=== PATIENT | female | born 1985 | race Asian ===

== ENCOUNTER 2018-08-21 16:42 | Inpatient (IN) | payer SELFPAY ==
[~2018-08-21] VITALS: Ht 162.6 cm; Wt 44.5 kg
[2018-08-21 16:42] VITALS: BP 107/76
--- NOTE | 2018-08-21 16:42 | NUR ---
ED Nurse Note: PT BROUGHT IN BY AMBULANCE FROM HOME. AOX4. PT C/O MEDIAL UPPER ABDOMEN PAIN, 1010 X YESTERDAY. PT ALSO C/O NAUSEA BUT DENIES VOMITING OR DIARRHEA. ACTIVE BOWEL SOUNDS IN ALL QUADRANTS. ABDOMEN NONDISTENDED BUT TENDER TO PALPATION. LAST BM X YESTERDAY WHICH PT STATES IS FORMED. PT ALSO C/O PAINFUL URINATION X YESTERDAY. PT DENIES VAGINAL SWELLING, BLEEDING OR DISCHARGE.
[2018-08-21] MEDS ORDERED: Lidocaine 2% Visc 15ml soln ORAL ONE (17:00)
[2018-08-21] MEDS ORDERED: Isovue-300 100ml vial INJ PRN ×2 (17:00)
[2018-08-21] MEDS ORDERED: Mylanta II UD 30ml ORAL ONE (17:00)
[2018-08-21] MEDS ORDERED: Dicyclomine HCl 10mg/5ml oral soln ORAL ONE (17:00)
[2018-08-21] MEDS ORDERED: Morphine Sulfate 2mg/ml Inj IVP ONE (17:15)
--- NOTE | 2018-08-21 17:35 | NUR ---
ED Nurse Note: PT CONSUMED READI-CAT.
[2018-08-21 18:13] LABS: HEMATOCRIT 39.8 % (37.0-47.0); HEMOGLOBIN 13.2 G/DL (12.0-16.0); MEAN CORPUSCULAR VOLUME 91 FL (80-99); PLATELET COUNT 235 K/UL (150-450); RED BLOOD COUNT 4.38 M/UL (4.20-5.40); RED CELL DISTRIBUTION WIDTH 12.2 % (11.6-14.8); WHITE BLOOD COUNT 12.2 K/UL (4.8-10.8)
[2018-08-21 18:14] LABS: BASOPHILS % (AUTO) 0.2 % (0.0-2.0); EOSINOPHILS % (AUTO) 0.2 % (0.0-3.0); LYMPHOCYTES % (AUTO) 4.3 % (20.0-45.0); MONOCYTES % (AUTO) 2.3 % (1.0-10.0)
[2018-08-21] MEDS ORDERED: Morphine Sulfate 4mg/ml Inj (IV/IM USE ONLY) IVP ONE (18:15)
[2018-08-21 18:18] LABS: APPEARANCE,URINE CLEAR; BILIRUBIN, URINE NEGATIVE (NEGATIVE); GLUCOSE, URINE (UA) NEGATIVE (NEGATIVE); KETONES,URINE 4+ (NEGATIVE); LEUKOCYTE ESTERASE ,URINE NEGATIVE (NEGATIVE); NITRITE,URINE NEGATIVE (NEGATIVE); PH,URINE 5 (4.5-8.0); PROTEIN,URINE 1+ (NEGATIVE); UROBILINOGEN,URINE NORMAL MG/DL (0.0-1.0)
[2018-08-21 18:19] LABS: COLOR,URINE YELLOW
[2018-08-21 18:24] LABS: ANION GAP 13 mmol/L (5-15); BLOOD UREA NITROGEN 13 mg/dL (7-18); CALCIUM 8.4 MG/DL (8.5-10.1); CARBON DIOXIDE 24 MMOL/L (21-32); CHLORIDE 102 MMOL/L (98-107); CREATININE 0.6 MG/DL (0.55-1.30); POTASSIUM 3.6 MMOL/L (3.5-5.1); SODIUM 139 MMOL/L (136-145)
[2018-08-21 18:28] LABS: ALANINE AMINOTRANSFERASE 17 U/L (12-78); ALBUMIN 3.8 G/DL (3.4-5.0); ALKALINE PHOSPHATASE 29 U/L (46-116); ASPARTATE AMINO TRANSFERASE 16 U/L (15-37); BILIRUBIN,TOTAL 0.5 MG/DL (0.2-1.0)
--- NOTE | 2018-08-21 19:01 | NUR ---
ED Nurse Note: PT DOWN TO CT VIA JULIO C.
--- NOTE | 2018-08-21 19:03 | NUR ---
ED Nurse Note: REPORT GIVEN TO ELROY SCHAEFFER.
--- NOTE | 2018-08-21 19:10 | NUR ---
ED Nurse Note: Received Pt and report from day shift. Knowing Pt is current doing CT scan. Await for the advance order.
--- NOTE | 2018-08-21 19:22 | Emergency Room Report ---
History of Present Illness General Chief Complaint: Abdominal Pain Source: Patient (Júnior Garcia MD) Present Illness HPI 33-year-old female presents ED for evaluation. Brought in by EMS complaining of abdominal pain. Sharp, 9 out of 10, nonradiating. Multiple episodes of vomiting. Denies diarrhea. Denies chest pain or shortness of breath. Denies fevers or chills. No other aggravating relieving factors. Denies any other associated symptoms (Júnior Garcia MD) Allergies: Coded Allergies: No Known Allergies (Unverified , 08/21/18) Patient History Past Medical History: none Past Surgical History: none Pertinent Family History: none Social History: Denies: smoking, alcohol use, drug use Now: No - Unknown Immunizations: UTD Reviewed Nursing Documentation: PMH: Agreed; PSxH: Agreed (Júnior Garcia MD) Nursing Documentation-PMH Past Medical History: No Stated History (Júnior Garcia MD) Review of Systems All Other Systems: negative except mentioned in HPI (Júnior Garcia MD) Physical Exam Vital Signs Date Time Temp Pulse Resp B/P (MAP) Pulse Ox O2 Delivery O2 Flow Rate FiO2 08/21/18 16:34 98.4 109 18 122/75 98 08/21/18 16:42 Room Air Sp02 EP Interpretation: reviewed, normal General Appearance: alert, GCS 15, non-toxic, mild distress, thin Head: normocephalic, atraumatic Eyes: bilateral eye normal inspection, bilateral eye PERRL ENT: hearing grossly normal, normal pharynx, no angioedema, normal voice Neck: full range of motion, supple/symm/no masses Respiratory: chest non-tender, lungs clear, normal breath sounds, speaking full sentences Cardiovascular #1: regular rate, rhythm, no edema Cardiovascular #2: 2+ carotid (R), 2+ carotid (L), 2+ radial (R), 2+ radial (L) , 2+ dorsalis pedis (R), 2+ dorsalis pedis (L) Gastrointestinal: normal bowel sounds, soft, non-distended, no rebound, guarding, tenderness Rectal: deferred Genitourinary: normal inspection, no CVA tenderness Musculoskeletal: back normal, gait/station normal, normal range of motion, non- tender Neurologic: alert, oriented x3, responsive, motor strength/tone normal, sensory intact, speech normal Psychiatric: judgement/insight normal, memory normal, mood/affect normal, no suicidal/homicidal ideation Reflexes: 3+ bicep (R), 3+ bicep (L), 3+ tricep (R), 3+ tricep (L), 3+ knee (R) , 3+ knee (L) Skin: normal color, no rash, warm/dry, well hydrated Lymphatic: no adenopathy (Júnior Garcia MD) Medical Decision Making Diagnostic Impression: Primary Impression: Pyosalpinx Labs Test 08/21/18 18:05 White Blood Count 12.2 K/UL (4.8-10.8) Red Blood Count 4.38 M/UL (4.20-5.40) Hemoglobin 13.2 G/DL (12.0-16.0) Hematocrit 39.8 % (37.0-47.0) Mean Corpuscular Volume 91 FL (80-99) Mean Corpuscular Hemoglobin 30.2 PG (27.0-31.0) Mean Corpuscular Hemoglobin Concent 33.2 G/DL (32.0-36.0) Red Cell Distribution Width 12.2 % (11.6-14.8) Platelet Count 235 K/UL (150-450) Mean Platelet Volume 6.7 FL (6.5-10.1) Neutrophils (%) (Auto) 93.0 % (45.0-75.0) Lymphocytes (%) (Auto) 4.3 % (20.0-45.0) Monocytes (%) (Auto) 2.3 % (1.0-10.0) Eosinophils (%) (Auto) 0.2 % (0.0-3.0) Basophils (%) (Auto) 0.2 % (0.0-2.0) Urine Color Yellow Urine Appearance Clear Urine pH 5 (4.5-8.0) Urine Specific [place] 1.025 (1.005-1.035) Urine Protein 1+ (NEGATIVE) Urine Glucose (UA) Negative (NEGATIVE) Urine Ketones 4+ (NEGATIVE) Urine Blood 1+ (NEGATIVE) Urine Nitrite Negative (NEGATIVE) Urine Bilirubin Negative (NEGATIVE) Urine Urobilinogen Normal MG/DL (0.0-1.0) Urine Leukocyte Esterase Negative (NEGATIVE) Urine RBC 0-2 /HPF (0 - 2) Urine WBC 0-2 /HPF (0 - 2) Urine Squamous Epithelial Cells Few /LPF (NONE/OCC) Urine Bacteria None /HPF (NONE) Urine HCG, Qualitative Negative (NEGATIVE) Sodium Level 139 MMOL/L (136-145) Potassium Level 3.6 MMOL/L (3.5-5.1) Chloride Level 102 MMOL/L (98-107) Carbon Dioxide Level 24 MMOL/L (21-32) Anion Gap 13 mmol/L (5-15) Blood Urea Nitrogen 13 mg/dL (7-18) Creatinine 0.6 MG/DL (0.55-1.30) Estimat Glomerular Filtration Rate > 60 mL/min (>60) Glucose Level 133 MG/DL (74-106) Calcium Level 8.4 MG/DL (8.5-10.1) Total Bilirubin 0.5 MG/DL (0.2-1.0) Aspartate Amino Transf (AST/SGOT) 16 U/L (15-37) Alanine Aminotransferase (ALT/SGPT) 17 U/L (12-78) Alkaline Phosphatase 29 U/L (46-116) Total Protein 7.5 G/DL (6.4-8.2) Albumin 3.8 G/DL (3.4-5.0) Globulin 3.7 g/dL Albumin/Globulin Ratio 1.0 (1.0-2.7) Lipase 65 U/L (73-393) (Júnior Garcia MD) ER Course Patient signout to me. She has CT scan and ultrasound concerning for pyosalpinx. Zosyn given by previous doctor. I discussed the case with Dr. Landaverde, OB-EQUINE DENTIST, who recommended Cefoxitim. She recommended 24-hour observation for IV antibiotics then switched to doxycycline. She will see the patient tomorrow. Dr. Mike contacted for admission. (Miguel Angel Stephens MD) CT/MRI/US Diagnostic Results CT/MRI/US Diagnostic Results #1: Imaging Test Ordered: CT A/P Impression ascites. peripheral enhancing cystic structure within adnexa - TOA vs pyosalpinx. CT/MRI/US Diagnostic Results #2: Imaging Test Ordered: Pelvic US Impression dilated fallopian tubes with ?pus (Júnior Garcia MD) Last Vital Signs Date Time Temp Pulse Resp B/P (MAP) Pulse Ox O2 Delivery O2 Flow Rate FiO2 08/21/18 16:42 98.6 103 18 107/76 100 Room Air Status: improved (Júnior Garcia MD) Status: improved (Miguel Angel Stephens MD) Disposition: ADMITTED INPATIENT Condition: Serious Referrals: NOT CHOSEN IPA/MD,REFERRING (PCP) Júnior Garcia MD Aug 21, 2018 19:22 Miguel Angel Stephens MD Aug 21, 2018 22:51
--- NOTE | 2018-08-21 19:25 | NUR ---
ED Nurse Note: Pt back from CT scan.
[2018-08-21 19:27] VITALS: BP 111/84
--- NOTE | 2018-08-21 20:07 | NUR ---
ED Nurse Note: US Pelvis at bedside.
[2018-08-21 21:40] VITALS: BP 118/78
[2018-08-21] MEDS ORDERED: Piperacillin/Tazobactam 3.375 GM in NS 110 ML IVPB ONE (21:45)
[2018-08-21] MEDS ORDERED: cefOXitin Sod 1 GM in D5W 55 ML IVPB ONE (22:45)
--- NOTE | 2018-08-21 23:00 | NUR ---
ED Nurse Note: Lactic acid and blood culture sample sent to Lab.
[2018-08-21 23:39] VITALS: BP 111/70
[2018-08-22] VITALS (8 sets, daily range): BP systolic 96–113; BP diastolic 60–78
--- NOTE | 2018-08-22 | NUR ---
ED Nurse Note: Knowing Dr. Mike given admit orders already. Will inform floor RN.
--- NOTE | 2018-08-22 00:30 | NUR ---
ED Nurse Note: Admit Pt to 3E Room 318-1. Pt is AO x 4times, VSS, on room air no distress. Belongings and skin check with floor RN. Report given to ELROY Ruiz.
--- NOTE | 2018-08-22 00:35 | NUR ---
NURSE NOTES: Received pt from [place] via [facility], pt is A&OX4, denies pain at this time. Pt ambulated from [facility] to bed with steady gait, no distress noted. IV L AC patent and intact. Bed in low position and locked, side rails up x 2, call light within reach. Will admit pt to floor.
--- NOTE | 2018-08-22 01:00 | NUR ---
NURSE NOTES: Pt c/o pain on IV site L AC. New IV inserted on L wrist #22 patent and intact. Pt tolerated procedure well.
[2018-08-22] MEDS ORDERED: ESTRADIOL1 M1 PO (01:48)
--- NOTE | 2018-08-22 07:28 | NUR ---
HAND-OFF: Report given to ELROY Fairbanks. Pt in stable condition.
--- NOTE | 2018-08-22 07:30 | NUR ---
NURSE NOTES:rounds done,patient awake a/ox4,room air,pain 2/10,tolerable.refused for scd at this time.iv site patent.plan of care discussed and with understanding.
[2018-08-22 07:42] LABS: HEMATOCRIT 33.5 % (37.0-47.0); HEMOGLOBIN 11.7 G/DL (12.0-16.0); MEAN CORPUSCULAR VOLUME 88 FL (80-99); PLATELET COUNT 214 K/UL (150-450); RED BLOOD COUNT 3.79 M/UL (4.20-5.40); WHITE BLOOD COUNT 10.5 K/UL (4.8-10.8)
--- NOTE | 2018-08-22 10:02 | Diagnostic Imaging Report ---
Clinical Indication: Medial upper abdominal pain for one day, 10 out of 10, nausea Technique: Patient given oral contrast. IV administration nonionic contrast. Venous phase spiral acquisition obtained through the abdomen and pelvis. Multiplanar reconstructions were generated. Total dose length product 396.51 mGycm. CTDIvol(s) 8.56 mGy. Dose reduction achieved using automated exposure control Comparison: Reference made to subsequent pelvic ultrasound Findings: The right ovary is enlarged, measuring 5.4 cm long axis dimension. It demonstrates contrast complex central echoes. Equivocally communicating with this is a left adnexal tubular structure. A moderate amount of free fluid is seen within the pelvis and along the bilateral paracolic gutters. There is also some free fluid over the dome of the liver and over the spleen. The appendix is normal. There is no evidence of colonic diverticulosis or diverticulitis. No small bowel distention. No free intraperitoneal gas is evident. Distal esophagus, stomach, duodenum are unremarkable. Ingested contrast has only traversed a small portion of the small bowel. The liver demonstrates a subcentimeter low-attenuation lesion in segment 7. The gallbladder, bile ducts, pancreas, spleen, adrenals, kidneys are unremarkable. No retroperitoneal or mesenteric mass or adenopathy. The included lung bases demonstrate posterior atelectatic changes. There is trace pleural fluid on the right Impression: Enlarged right ovary with complex central contents, equivocally communicating left adnexal region tubular structure. Findings are concerning for tubo-ovarian abscess with pyosalpinx Moderate ascites, suspect related to the above Bilateral basilar pulmonary atelectatic changes and trace right pleural effusion Subcentimeter low-attenuation lesion in the right hepatic lobe, too small to characterize. Most likely benign simple cyst or bile hamartoma. No further follow-up necessary This agrees with the preliminary interpretation provided overnight by [facility]erad[facility] service. The CT scanner at [facility] is accredited by the [employer] and the scans are performed using protocols designed to limit radiation exposure to as low as reasonably achievable to attain images of sufficient resolution adequate for diagnostic evaluation.
--- NOTE | 2018-08-22 10:06 | Diagnostic Imaging Report ---
Indication: Pelvic pain, abnormal CT scan Technique: Transabdominal and transvaginal images Comparison: Reference made to CT scan performed one hour earlier Findings: Uterus measures 7.2 cm length by 4.2 cm AP. Endometrium measures 4 mm thick. No myometrial abnormality. The right ovary is enlarged and hyperemic, measures 5.4 cm in length. Complex debris-filled tubular structure seen in the left adnexa. Separate left ovary is only equivocally demonstrated, if real measuring 5 cm in length. Free fluid is seen in the pelvis. A separate left ovary is not demonstrated. Impression: Bilateral abnormal ovaries/adnexa, with evidence of a debris-filled tubular structure concerning for pyosalpinx, confirming findings described on recent CT scan. Free pelvic fluid, also described on recent CT, likely related to the above This agrees with the preliminary interpretation provided overnight by [facility] service.
--- NOTE | 2018-08-22 11:40 | Consultation ---
Consult Note Consult Note GYNECOLOGY CONSULT NOTE CC: Pelvic pain, R ovarian mass HPI: Patient is a [place] G0 who presented to the ED with new onset lower abdominal pain. She endorsed dysuria prior to the onset of worsening pain, pain with ambulation, and nausea but no vomiting. Her pain initially began on Wednesday but worsened acutely last night, prompting her to call 911. She denies any rigorous activity prior to the onset of pain. LMP 08/19/18. She has a history of dysmenorrhea. She was seen at a clinic in the community last month for her painful periods, diagnosed with a right ovarian cyst, and started on OCPs for a 3 month period. Her MP started on Wednesday, which based on her pill pack is early. Her imaging findings are concerning for TOA, however given her lab findings and clinical picture, a ruptured cyst or ovarian torsion are also in the differential. 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 FamHx: Father with lung cancer 2/2 smoking, Aunt with cervical cancer, grandfather with colon cancer VITALS: Tlast 98.9, HR 90, RR 18, BP 99/70, O2 98% RA EXAM: Gen: NAD HEENT: MMM, OP clear CV: RRR Pulm: No increased work of breathing Abd: Soft, mild/moderate TTP with mild rebound and +voluntary guarding which resolved with redirection Pelvic: Internal exam deferred, however per ED physician no abnormal discharge Skin: Warm, dry Ext: No calf TTP LABS: Test 08/21/18 18:05 08/21/18 22:00 08/22/18 06:45 White Blood Count 12.2 K/UL (4.8-10.8) 10.5 K/UL (4.8-10.8) Red Blood Count 4.38 M/UL (4.20-5.40) 3.79 M/UL (4.20-5.40) Hemoglobin 13.2 G/DL (12.0-16.0) 11.7 G/DL (12.0-16.0) Hematocrit 39.8 % (37.0-47.0) 33.5 % (37.0-47.0) Mean Corpuscular Volume 91 FL (80-99) 88 FL (80-99) Mean Corpuscular Hemoglobin 30.2 PG (27.0-31.0) 30.7 PG (27.0-31.0) Mean Corpuscular Hemoglobin Concent 33.2 G/DL (32.0-36.0) 34.8 G/DL (32.0-36.0) Red Cell Distribution Width 12.2 % (11.6-14.8) 12.0 % (11.6-14.8) Platelet Count 235 K/UL (150-450) 214 K/UL (150-450) Mean Platelet Volume 6.7 FL (6.5-10.1) 7.4 FL (6.5-10.1) Neutrophils (%) (Auto) 93.0 % (45.0-75.0) % (45.0-75.0) Lymphocytes (%) (Auto) 4.3 % (20.0-45.0) % (20.0-45.0) Monocytes (%) (Auto) 2.3 % (1.0-10.0) % (1.0-10.0) Eosinophils (%) (Auto) 0.2 % (0.0-3.0) % (0.0-3.0) Basophils (%) (Auto) 0.2 % (0.0-2.0) % (0.0-2.0) Urine Color Yellow Urine Appearance Clear Urine pH 5 (4.5-8.0) Urine Specific [place] 1.025 (1.005-1.035) Urine Protein 1+ (NEGATIVE) Urine Glucose (UA) Negative (NEGATIVE) Urine Ketones 4+ (NEGATIVE) Urine Blood 1+ (NEGATIVE) Urine Nitrite Negative (NEGATIVE) Urine Bilirubin Negative (NEGATIVE) Urine Urobilinogen Normal MG/DL (0.0-1.0) Urine Leukocyte Esterase Negative (NEGATIVE) Urine RBC 0-2 /HPF (0 - 2) Urine WBC 0-2 /HPF (0 - 2) Urine Squamous Epithelial Cells Few /LPF (NONE/OCC) Urine Bacteria None /HPF (NONE) Urine HCG, Qualitative Negative (NEGATIVE) Sodium Level 139 MMOL/L (136-145) Potassium Level 3.6 MMOL/L (3.5-5.1) Chloride Level 102 MMOL/L (98-107) Carbon Dioxide Level 24 MMOL/L (21-32) Anion Gap 13 mmol/L (5-15) Blood Urea Nitrogen 13 mg/dL (7-18) Creatinine 0.6 MG/DL (0.55-1.30) Estimat Glomerular Filtration Rate > 60 mL/min (>60) Glucose Level 133 MG/DL (74-106) Calcium Level 8.4 MG/DL (8.5-10.1) Total Bilirubin 0.5 MG/DL (0.2-1.0) Aspartate Amino Transf (AST/SGOT) 16 U/L (15-37) Alanine Aminotransferase (ALT/SGPT) 17 U/L (12-78) Alkaline Phosphatase 29 U/L (46-116) Total Protein 7.5 G/DL (6.4-8.2) Albumin 3.8 G/DL (3.4-5.0) Globulin 3.7 g/dL Albumin/Globulin Ratio 1.0 (1.0-2.7) Lipase 65 U/L (73-393) Lactic Acid Level 1.50 mmol/L (0.4-2.0) Differential Total Cells Counted 100 Neutrophils % (Manual) 92 % (45-75) Lymphocytes % (Manual) 4 % (20-45) Monocytes % (Manual) 4 % (1-10) Eosinophils % (Manual) 0 % (0-3) Basophils % (Manual) 0 % (0-2) Band Neutrophils 0 % (0-8) Platelet Estimate Adequate Platelet Morphology Normal Red Blood Cell Morphology Normal IMAGING: Pelvic US: Findings: Uterus measures 7.2 cm length by 4.2 cm AP. Endometrium measures 4 mm thick. No myometrial abnormality. The right ovary is enlarged and hyperemic, measures 5.4 cm in length. Complex debris-filled tubular structure seen in the left adnexa. Separate left ovary is only equivocally demonstrated, if real measuring 5 cm in length. Free fluid is seen in the pelvis. A separate left ovary is not demonstrated. Impression: Bilateral abnormal ovaries/adnexa, with evidence of a debris-filled tubular structure concerning for pyosalpinx, confirming findings described on recent CT scan. Free pelvic fluid, also described on recent CT, likely related to the above This agrees with the preliminary interpretation provided overnight by [facility] service. CT A/P w/CONTRAST: Findings: The right ovary is enlarged, measuring 5.4 cm long axis dimension. It demonstrates contrast complex central echoes. Equivocally communicating with this is a left adnexal tubular structure. A moderate amount of free fluid is seen within the pelvis and along the bilateral paracolic gutters. There is also some free fluid over the dome of the liver and over the spleen. The appendix is normal. There is no evidence of colonic diverticulosis or diverticulitis. No small bowel distention. No free intraperitoneal gas is evident. Distal esophagus, stomach, duodenum are unremarkable. Ingested contrast has only traversed a small portion of the small bowel. The liver demonstrates a subcentimeter low-attenuation lesion in segment 7. The gallbladder, bile ducts, pancreas, spleen, adrenals, kidneys are unremarkable. No retroperitoneal or mesenteric mass or adenopathy. The included lung bases demonstrate posterior atelectatic changes. There is trace pleural fluid on the right Impression: Enlarged right ovary with complex central contents, equivocally communicating left adnexal region tubular structure. Findings are concerning for tubo-ovarian abscess with pyosalpinx. Moderate ascites, suspect related to the above Assessment/Plan 33yo admitted with pelvic pain, noted to have R ov cyst and possible pyosalpinx on left, imaging concerning for TOA. DDx includes TOA/PID, ruptured ovarian cyst, or ovarian torsion - Patient is s/p IV antibiotics with WBC count decreasing, and patient has remained afebrile - Given patient's symptoms are improving and she has only required Tylenol since transfer, I am clearing the patient for discharge from a [employer] standpoint - I instructed the patient to follow up with her [employer] clinic in the next week for follow up - Since we cannot rule out PID, recommend empiric therapy at time of discharge ( Doxycycline 100mg PO BID x 14d) - Recommend d/c with medication for pain - OK to advance diet given no indication for urgent/emergent surgical intervention Thank you for this interesting consult Signed: MD Breana Olivarez Carla M.D. Aug 22, 2018 11:40
--- NOTE | 2018-08-22 12:20 | NUR ---
NURSE NOTES:SEEN BY DR. KINGSTON, UPDATED RE:C/O BURNING SENSATION WHEN SHE URINATED YESTERDAY.C/O ABDOMINAL PAIN AT TIMES BUT REFUSED PAIN MED WHEN OFFERED.ENCOURAGED TO AMBULATE.. STAND POINT SHES CLEARED FOR D/C TODAY.STARTED ON REGULAR DIET.
[2018-08-22] MEDS ORDERED: cefOXitin 2gm Inj IM SCH (13:00)
--- NOTE | 2018-08-22 13:26 | NUR ---
RD ASSESSMENT & RECOMMENDATIONS SEE CARE ACTIVITY FOR COMPLETE ASSESSMENT DAILY ESTIMATED NEEDS: Needs based on Borderline underweight 42.7kg 28-33 kcals/kg 6508-2191 total kcals 1-1.2 g protein/kg 43-51 g total protein 25-30 mL/kg 5431-3316 total fluid mLs NUTRITION DIAGNOSIS: Altered nutrition related lab values r/t clinical status / PUD as evidenced by febrile (tmax 100), elev BG (133). CURRENT DIET: now Regular PO DIET RECOMMENDATIONS: Regular as tolerated ADDITIONAL RECOMMENDATIONS: 1) Obtain a standing weight as able 2) Monitor BG (currently 133) 3) Add ENSURE 1 bottle daily 4) Monitor PO intake, need for snacks
[2018-08-22] MEDS ORDERED: cefOXitin Sod 2 GM in D5W 55 ML IVPB SCH (16:00)
--- NOTE | 2018-08-22 16:30 | History and Physical Report ---
DATE OF ADMISSION: 08/21/2018 HISTORY OF PRESENT ILLNESS: The patient admitted for hydrosalpinx, leukocytosis. According to the ER doctor, Dr. Yennifer Toussaint will see the patient for gynecological consultation while inpatient. The patient complains of diffuse abdominal pain especially in the lower quadrants as well as dysuria. 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 The patient does have some chills as well. Denies nausea, vomiting, or diarrhea. Denies shortness of breath. Denies cough. PAST MEDICAL HISTORY: None. PAST SURGICAL HISTORY: None. MEDICATIONS: Only on control pills. ALLERGIES: No known allergies. FAMILY HISTORY: Noncontributory. SOCIAL HISTORY: Denies history of smoking, alcohol, or illicit drugs. REVIEW OF SYSTEMS: HEENT: Denies headaches. RESPIRATORY: Denies shortness of breath. Denies cough. CARDIOVASCULAR: Denies chest pain. Denies orthopnea. GASTROINTESTINAL: Reports abdominal pain and dysuria for about a day. It has been going on for a couple of days, but is made worse in the past 1 day. The patient called 911, however, the patient is not in acute distress so I doubt relying comfortably. CENTRAL NERVOUS SYSTEM: Denies change in vision or speech pattern. EXTREMITIES: Denies pain in the lower extremity. PHYSICAL EXAMINATION: VITAL SIGNS: Temperature is 98 degrees, pulse is 103, blood pressure 113/77. HEENT: PERRLA. NECK: Supple. No lymphadenopathy. CHEST: Clear to auscultation. CARDIOVASCULAR: Regular rate and rhythm. No murmurs or extra sounds. GASTROINTESTINAL: Mild epigastric tenderness. Mild suprapubic tenderness. No rebound. Abdomen is soft. The patient is not in acute distress. EXTREMITIES: No edema. Reflexes equal on both sides. Moves all four extremities. LABORATORY DATA: WBC of 12.2, hemoglobin 13.2, platelets 235. Sodium 139, potassium 3.6, chloride 102, BUN of 13, creatinine 0.6. ASSESSMENT/PLAN: Rule out hydrosalpinx, rule out urinary tract infection. Dr. Yennifer Landaverde is going to see the patient ER doctor and Dr. Cosme Garces has also been consulted. Antibiotics per Dr. Cosme Garces. Ali Nell Mike DR: Louise JOB#: [id number] CC:
[2018-08-22] MEDS: Unasyn 3gm/NS 110ml IVPB SCH ×4 (17:09→23:34)
--- NOTE | 2018-08-22 19:20 | NUR ---
HAND-OFF: Report given to KJ FORD.
--- NOTE | 2018-08-22 19:57 | NUR ---
NURSE NOTES: Patient received in bed, aaox4. c/o burning sensation with urine. Made aware of urine collection, hat and specimen cup provided for patient. Encouraged PO hydration. Verbalized understanding . IVF infusing. Will continue to monitor.
--- NOTE | 2018-08-22 23:36 | NUR ---
NURSE NOTES: Patient c/o abdominal pain. Offered tylenol, encouraged patient to take pain medication before pain becomes severe. Tylenol administered for mild pain and low grade fever 100.0 oral temp. Will monitor.
--- NOTE | 2018-08-23 02:30 | Consultation ---
DATE OF CONSULTATION: 08/22/2018 INFECTIOUS DISEASE CONSULT: CONSULTING PHYSICIAN: Cosme Garces M.D. PRIMARY ATTENDING: Kamlesh Mike M.D. REASON FOR CONSULT: Pelvic inflammatory disease, pyosalpinx, and likely tubo-ovarian abscess. HISTORY OF PRESENT ILLNESS: The patient is a 33-year-old female admitted late last night complaining of lower abdominal pain for 1 day, 10/10 with nausea. Pain is increased with ambulation and movement. No significant fever. Last menstrual period is on 08/19/2018. PAST MEDICAL HISTORY: Nonsignificant. ALLERGIES: No known drug allergies. MEDICATIONS: Getting sodium chloride, Tylenol, got a dose of Zosyn, cefoxitin, Zofran,one dose of dicyclomine, Mylanta. SOCIAL HISTORY: Originally is from [facility]. Denied alcohol, drug abuse, or smoking. 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 REVIEW OF SYSTEMS: As history of present illness. PHYSICAL EXAMINATION: VITAL SIGNS: Maximum temperature 100, current temperature 98.6, pulse 96, and blood pressure 98/60. GENERAL APPEARANCE: Thin and underweight. HEAD AND NECK: Slightly dry mouth. HEART: Normal rate. LUNGS: Clear. ABDOMEN: Soft. Tender in lower quadrant. EXTREMITIES: Has no edema. LABORATORY AND DIAGNOSTIC DATA: WBC today is 10.5 coming down from 12.2 at the time of admission, hemoglobin 11.7, hematocrit 33.5, and platelets 214. Sodium 139, potassium 3.6, chloride 102, bicarbonate 24, BUN 13, creatinine 0.6, and glucose 133. UA was negative for WBC or RBC. The patient had a CT scan of the abdomen and pelvis that showed large right ovary concerning of tubo-ovarian abscess with pyosalpinx, moderate ascites bilateral pulmonary atelectasis. Pelvic ultrasound, bilateral abnormal ovaries and adnexa, again was concerned about pyosalpinx. IMPRESSION: Pelvic inflammatory disease with pyosalpinx and likely tubo-ovarian abscess on the right side. RECOMMENDATION: Continue cefoxitin. We will start on doxycycline. We will send urine for gonorrhea and chlamydia. We will check HIV status. At the end of my exam, I thank Dr. Mike, for involving me in the care of this patient. Cosme Nell Garces DR: LANI JOB#: [id number] CC: MCKAYLA
[2018-08-23 04:00] VITALS: BP 92/58
[2018-08-23] MEDS: Unasyn 3gm/NS 110ml IVPB SCH ×8 (05:13→23:51)
--- NOTE | 2018-08-23 07:44 | NUR ---
HAND-OFF: Report given to Ally Kim RN.
[2018-08-23 07:59] LABS: BASOPHILS % (AUTO) 0.6 % (0.0-2.0); EOSINOPHILS % (AUTO) 2.6 % (0.0-3.0); HEMATOCRIT 33.3 % (37.0-47.0); HEMOGLOBIN 11.1 G/DL (12.0-16.0); LYMPHOCYTES % (AUTO) 13.4 % (20.0-45.0); MEAN CORPUSCULAR VOLUME 91 FL (80-99); MONOCYTES % (AUTO) 7.8 % (1.0-10.0); NEUTROPHILS % (AUTO) 75.6 % (45.0-75.0); PLATELET COUNT 194 K/UL (150-450); RED BLOOD COUNT 3.68 M/UL (4.20-5.40); RED CELL DISTRIBUTION WIDTH 11.9 % (11.6-14.8); WHITE BLOOD COUNT 6.5 K/UL (4.8-10.8)
[2018-08-23 08:00] VITALS: BP 101/66
--- NOTE | 2018-08-23 08:05 | NUR ---
NURSE NOTES: Received report from ELROY Ibarra. Rounding done with outgoing nurse. Patient a/o x4 and having breakfast. Denies any pain at this time. No acute discomfort noted. Bed in lowest position and call light within reach. Will continue to monitor.
--- NOTE | 2018-08-23 11:32 | Infectious Diseases Prog Note ---
Assessment/Plan Assessment/Plan A: Pelvic inflammatory disease with pyosalpinx and likely tubo-ovarian abscess on the right side. P; Continue Unasyn & doxycycline HIV test Subjective ROS Limited/Unobtainable: No Constitutional: Reports: fever, other - low grade last night Respiratory: Reports: no symptoms Cardiovascular: Reports: no symptoms Gastrointestinal/Abdominal: Reports: other - decreased abdominal pain Genitourinary: Reports: no symptoms Neurologic: Reports: no symptoms Allergies: Coded Allergies: No Known Allergies (Unverified , 08/21/18) Objective Vital Signs Last 24 Hour Vital Signs Date Time Temp Pulse Resp B/P (MAP) Pulse Ox O2 Delivery O2 Flow Rate FiO2 08/23/18 09:00 Room Air 08/23/18 08:00 98.1 100 18 101/66 (78) 100 08/23/18 04:00 98.3 82 18 92/58 (69) 100 08/22/18 23:59 100.0 111 18 105/64 (78) 97 08/22/18 21:00 Room Air 08/22/18 20:00 98.1 105 18 101/78 (86) 100 08/22/18 16:00 99.5 104 18 101/63 (76) 98 08/22/18 12:12 98.6 96 18 98/60 (73) 99 Height (Feet): 5 Height (Inches): 4.00 Weight (Pounds): 105 General Appearance: no acute distress HEENT: mucous membranes moist Respiratory/Chest: lungs clear Cardiovascular: normal rate Abdomen: tender, other - in right lower abdomen Extremities: no edema Neurologic/Psychiatric: alert, oriented x 3, responsive Microbiology Date/Time Source Procedure Growth Status 08/21/18 23:12 Blood Blood Culture - Preliminary NO GROWTH AFTER 24 HOURS Resulted 08/21/18 22:55 Blood Blood Culture - Preliminary NO GROWTH AFTER 24 HOURS Resulted Laboratory Tests Test 08/22/18 21:00 08/23/18 07:00 Chlamydia trachomatis RNA Pending White Blood Count 6.5 K/UL (4.8-10.8) Red Blood Count 3.68 M/UL (4.20-5.40) L Hemoglobin 11.1 G/DL (12.0-16.0) L Hematocrit 33.3 % (37.0-47.0) L Mean Corpuscular Volume 91 FL (80-99) Mean Corpuscular Hemoglobin 30.3 PG (27.0-31.0) Mean Corpuscular Hemoglobin Concent 33.4 G/DL (32.0-36.0) Red Cell Distribution Width 11.9 % (11.6-14.8) Platelet Count 194 K/UL (150-450) Mean Platelet Volume 6.7 FL (6.5-10.1) Neutrophils (%) (Auto) 75.6 % (45.0-75.0) H Lymphocytes (%) (Auto) 13.4 % (20.0-45.0) L Monocytes (%) (Auto) 7.8 % (1.0-10.0) Eosinophils (%) (Auto) 2.6 % (0.0-3.0) Basophils (%) (Auto) 0.6 % (0.0-2.0) Current Medications Medications (Trade) Dose Ordered Sig/Imelda Route PRN Reason Start Time Stop Time Status Last Admin Dose Admin Acetaminophen (Tylenol) 650 mg Q4HR PRN ORAL For Pain 08/22/18 00:00 09/21/18 00:00 08/22/18 23:34 Ampicillin Sodium/ Sulbactam Sodium 3 gm/Sodium Chloride 110 ml @ 220 mls/hr Q6HR IVPB 08/22/18 17:00 08/29/18 16:59 08/23/18 05:13 Doxycycline Monohydrate (Vibramycin) 100 mg EVERY 12 HOURS ORAL 08/22/18 21:00 08/29/18 20:59 08/23/18 09:32 Sodium Chloride 1,000 ml @ 75 mls/hr [id number] IV 08/22/18 00:00 09/21/18 00:00 08/23/18 03:14 Cosme Garces MD Aug 23, 2018 11:32
[2018-08-23 12:00] VITALS: BP 111/68
[2018-08-23 16:00] VITALS: BP 94/58
[2018-08-23] MEDS ORDERED: 1/2 NS 1000ml IV ONE ×2 (17:46→17:48)
--- NOTE | 2018-08-23 19:30 | NUR ---
HAND-OFF: Report given to Alfonso Lynn.
[2018-08-23 20:00] VITALS: BP 118/68
--- NOTE | 2018-08-23 22:08 | General Progress Note ---
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 per id afebrile Subjective Gastrointestinal/Abdominal: Reports: abdominal pain Allergies: Coded Allergies: No Known Allergies (Unverified , 08/21/18) Objective Last 24 Hour Vital Signs Date Time Temp Pulse Resp B/P (MAP) Pulse Ox O2 Delivery O2 Flow Rate FiO2 08/23/18 16:00 98.3 94 18 94/58 (70) 100 08/23/18 12:00 98.1 102 18 111/68 (82) 98 08/23/18 09:00 Room Air 08/23/18 08:00 98.1 100 18 101/66 (78) 100 08/23/18 04:00 98.3 82 18 92/58 (69) 100 08/22/18 23:59 100.0 111 18 105/64 (78) 97 Intake and Output 08/22/18 08/23/18 19:00 07:00 Intake Total 1785 ml 1010 ml Balance 1785 ml 1010 ml Intake Oral 1000 ml IV Total 785 ml 1010 ml # Voids 4 2 Laboratory Tests 08/23/18 07:00: White Blood Count 6.5, Red Blood Count 3.68L, Hemoglobin 11.1L, Hematocrit 33.3L , Mean Corpuscular Volume 91, Mean Corpuscular Hemoglobin 30.3, Mean Corpuscular Hemoglobin Concent 33.4, Red Cell Distribution Width 11.9, Platelet Count 194, Mean Platelet Volume 6.7, Neutrophils (%) (Auto) 75.6H, Lymphocytes ( %) (Auto) 13.4L, Monocytes (%) (Auto) 7.8, Eosinophils (%) (Auto) 2.6, Basophils (%) (Auto) 0.6 08/23/18 07:20: HIV (1&2) Antibody Rapid Negative Height (Feet): 5 Height (Inches): 4.00 Weight (Pounds): 105 Cardiovascular: normal peripheral pulses Respiratory/Chest: lungs clear Abdomen: soft Kamlesh Mike MD Aug 23, 2018 22:08
[2018-08-24] VITALS: BP 106/79
[2018-08-24 04:00] VITALS: BP 98/62
[2018-08-24] MEDS: Unasyn 3gm/NS 110ml IVPB SCH ×2 (05:13)
--- NOTE | 2018-08-24 07:30 | NUR ---
HAND OFF TO NIRAJ ABBASI
--- NOTE | 2018-08-24 07:30 | NUR ---
NURSE NOTES: Patient is in bed awake and able to verbalize needs. Patient is stable with no s/s acute distress. Patient denies pain at this time. Patient is in good spirits. Patient in bed in locked position and call light within reach. Will continue to monitor.
[2018-08-24 08:00] VITALS: BP 108/74
--- NOTE | 2018-08-24 09:05 | NUR ---
NURSE NOTES: 1. Ok to discharge if cleared by Gynecology, 2. Resume Home medications, 3. D/C hospital medications, 4. Call Cosme Mo if patient on Antibiotic, 5. Instruct to follow up with primary doctor and Gynecology. Order read back and carried out.
--- NOTE | 2018-08-24 10:48 | Infectious Diseases Prog Note ---
Assessment/Plan Assessment/Plan A: Pelvic inflammatory disease with pyosalpinx and likely tubo-ovarian abscess on the right side. P; Discontinue Unasyn , Continue doxycycline X11 days HIV test is negative Agree with discharge Followup in [facility] Subjective ROS Limited/Unobtainable: No Constitutional: Reports: no symptoms Respiratory: Reports: no symptoms Cardiovascular: Reports: no symptoms Genitourinary: Reports: other - lower abdominal pain Allergies: Coded Allergies: No Known Allergies (Unverified , 08/21/18) Objective Vital Signs Last 24 Hour Vital Signs Date Time Temp Pulse Resp B/P (MAP) Pulse Ox O2 Delivery O2 Flow Rate FiO2 08/24/18 09:00 Room Air 08/24/18 08:00 97.6 80 20 108/74 (85) 100 08/24/18 05:55 98.3 08/24/18 04:00 98.8 100 18 98/62 (74) 97 08/24/18 00:00 98.3 86 18 106/79 (88) 96 08/23/18 21:00 Room Air 08/23/18 20:00 98.4 90 18 118/68 (85) 100 08/23/18 16:00 98.3 94 18 94/58 (70) 100 08/23/18 12:00 98.1 102 18 111/68 (82) 98 Height (Feet): 5 Height (Inches): 4.00 Weight (Pounds): 98 General Appearance: no acute distress HEENT: mucous membranes moist Respiratory/Chest: lungs clear Cardiovascular: normal rate Abdomen: tender, other - in suprapubic area Extremities: no edema Neurologic/Psychiatric: alert, oriented x 3, responsive Microbiology Date/Time Source Procedure Growth Status 08/21/18 23:12 Blood Blood Culture - Preliminary NO GROWTH AFTER 48 HOURS Resulted 08/21/18 22:55 Blood Blood Culture - Preliminary NO GROWTH AFTER 48 HOURS Resulted Current Medications Medications (Trade) Dose Ordered Sig/Imelda Route PRN Reason Start Time Stop Time Status Last Admin Dose Admin Acetaminophen (Tylenol) 650 mg Q4HR PRN ORAL For Pain 08/22/18 00:00 09/21/18 00:00 08/24/18 05:25 Ampicillin Sodium/ Sulbactam Sodium 3 gm/Sodium Chloride 110 ml @ 220 mls/hr Q6HR IVPB 08/22/18 17:00 1/7/19 16:59 08/24/18 05:13 Doxycycline Monohydrate (Vibramycin) 100 mg EVERY 12 HOURS ORAL 08/22/18 21:00 08/29/18 20:59 08/24/18 08:20 Sodium Chloride 1,000 ml @ 75 mls/hr [id number] IV 08/22/18 00:00 09/21/18 00:00 08/24/18 05:12 Cosme Garces MD Aug 24, 2018 10:48
[2018-08-24] MEDS ORDERED: DOXYCYCLINE HY100 M2 PO (12:06)
[2018-08-24 12:07] VITALS: BP 104/72
--- NOTE | 2018-08-24 12:20 | NUR ---
CASE MANAGEMENT: REVIEW 33/F BIBA FROM HOME CC: ABD PAIN SI: PELVIC PAIN . RIGHT OVARIAN MASS T 98.4 HR 109 RR 18 BP 122/75 SAT 98% ROOM AIR WBC 12.2 LIPASE 65 IS: NS IVF X1 ZOFRAN IV X1 CEFOXITIN IV X1 ZOSYN IV X1 DOXYCYCLINE PO X1 INTERQUAL CRITERIA MET: PATIENT ADMITTED TO MED/SURG UNIT 08/21/2018 DCP: PATIENT IS FROM HOME CASE MANAGEMENT: REVIEW SI: PELVIC PAIN . RIGHT OVARIAN MASS T 99.9 HR 103 RR 20 BP 99/65 SAT 100% ROOM AIR H/H 11.7/33.5 IS: DOXYCYCLINE PO Q12HR NS IVF @75ML/HR MED/SURG STATUS DCP: PATIENT IS FROM HOME CASE MANAGEMENT: REVIEW SI: PELVIC PAIN . RIGHT OVARIAN MASS T 98.1 HR 102 RR 18 BP 94/58 SAT 98% ROOM AIR IS: DOXYCYCLINE PO Q12HR NS IVF @75ML/HR MED/SURG STATUS DCP: PATIENT IS FROM HOME
--- NOTE | 2018-08-24 14:00 | NUR ---
NURSE NOTES: Patient discharged home as ordered. Patient is stable, no s/s acute distress. Patient does not complain of pain or SOB. Skin is clean, dry, and intact. IV removed, no complications. Patient has all medications filled from [facility]. Patient has all belongings. RN gave thorough discharge instructions, patient verbalized understanding. Patient was assisted to taxi by RN.
--- NOTE | 2018-08-25 05:51 | Discharge Summary ---
Discharge Summary Discharge Summary _ DATE OF ADMISSION: 08/21/2018 DATE OF DISCHARGE: 08/24/2018 DISCHARGED BY: Dr. Kamlesh Galvin CONSULTANTS: Dr. Cosme Toussaint BRIEF HOSPITAL COURSE: Patient is a 33-year-old female, presented to ED via EMS complaining of abdominal pain, sharp, 9 out of 10, nonradiating. She had multiple episodes of vomiting. She denied diarrhea. Denied chest pain or shortness of breath. Denied fever or chills. She had no medical history. On evaluation at the ED, she was slightly tachycardic, heart rate 109. Blood pressure was stable. Blood work showed elevated WBC 12.2. Hemoglobin and hematocrit were normal. Urinalysis was negative. Electrolytes were normal. She had a CT scan of the abdomen and pelvis that showed an enlarged right ovary with complex central contents. We focally communicating left adnexal region tubular structure. Findings concerning for tubo-ovarian abscess with pyosalpinx. There was moderate ascites found. An abdominal ultrasound was done that showed bilateral abnormal ovaries/adnexa with evidence of debris- filled tubular structure concerning for pyosalpinx, findings confirming recent CT. Counter Hand was consulted. Patient was recommended antibiotic treatment. Patient was then admitted for evaluation of pyosalpinx. She was seen by agricultural systems specialist. She was initially started with cefoxitin. Patient clinically was improving. Since unable to rule out PID. She was recommended empiric therapy. She was seen by infectious disease specialist. Chlamydia negative. HIV green negative. She was given Unasyn and doxycycline. WBC normalized. She was advised to follow-up with [facility] [employer] as outpatient. She was then discharged home to continue p.o. antibiotics. FINAL DIAGNOSES: Pelvic inflammatory disease with pyosalpinx and likely tubo-ovarian abscess on the right side DISPOSITION: Patient was discharged home. DISCHARGE MEDICATIONS: Refer to Discharge Medication List. DISCHARGE INSTRUCTIONS: Follow-up in a week with PMD and gynecology. I have been assigned to dictate discharge summary on this account, and I was not involved in the patient's management. Alisson Olsen NP Aug 25, 2018 05:51
== END 2018-08-24 14:00 | disposition home or self-care (01) | DRG 759 ==
LOC: EDBD 16:42 → EMR 17:09 → 3E 22:45 → EDBEDREQ 23:43
DX: N70.93 Salpingitis and oophoritis, unspecified (principal)
CPT/HCPCS: 36415; 74177; 76856; 80053; 81003; 81025; 83605; 83690; 85007; 85025; 86703; 87040; 87491; 96360; 99285; J2405